=== PATIENT | female | born 1980 | race Caucasian/White ===

== ENCOUNTER 2016-09-22 15:53 | Emergency (ER) | payer OTHER ==
[~2016-09-22 15:53] MED LIST: GLUCOPHAGE1000 MG PO; HUMULIN 70100 UNIT/1 SQ; LIPITOR10 MG PO; NITROGLYCERIN0.4 MG SL; ONDANSETRON HCL4 MG PO; PANTOPRAZOLE SO40 MG PO; TOPROL XL50 MG PO; ZESTRIL5 MG PO
== END 2016-09-22 18:37 | disposition home or self-care (01) ==
LOC: ER 15:53
DX: J10.1 Influenza due to other identified influenza virus with other respiratory manifestations (principal); M54.30 Sciatica, unspecified side; Z87.42 Personal history of other diseases of the female genital tract; Z88.6 Allergy status to analgesic agent; Z79.899 Other long term (current) drug therapy
CPT/HCPCS: 87070; 87400; 87880; 99283